=== PATIENT | female | born 2000 | race Caucasian/White ===

== ENCOUNTER 2021-06-16 00:46 | Emergency (ER) | payer MEDICAID ==
[~2021-06-16] VITALS: Ht 157.5 cm; Wt 63.3 kg
[2021-06-16 01:29] LABS: BASOPHILS % 0.5 % (0.0-2.0); HEMATOCRIT. 41.1 % (36.0-48.0); LYMPHOCYTES % 26.6 % (20.0-50.0); MEAN CORPUSCULAR HEMOGLOBIN 30.2 pg (28.0-32.0); MEAN CORPUSCULAR VOLUME 88.7 fL (81.0-99.0); MEAN PLATELET VOLUME 7.9 fl (7.4-10.4); MONOCYTES % 8.8 % (2.0-8.0); NEUTROPHILS % 61.1 % (40.0-76.0); PLATELET 257 x1000/uL (130-400); RED BLOOD CELL COUNT 4.63 mill/uL (4.2-5.4); RED CELL DISTRIBUTION WIDTH 12.7 % (11.6-14.6)
[2021-06-16 01:35] LABS: CHLORIDE 104 mEq/L (98-107)
[2021-06-16 01:41] LABS: HCG SCREEN NEGATIVE
[2021-06-16] MEDS ORDERED: BACL-141 MT (03:10)
[2021-06-16] MEDS ORDERED: IBUP-2028 MT (03:10)
[2021-06-16 03:20] VITALS: BP 120/73
== END 2021-06-16 03:20 | disposition home or self-care (01) ==
LOC: ER 01:02
DX: R07.9 Chest pain, unspecified (principal); Z98.84 Bariatric surgery status
CPT/HCPCS: 36415; 71045; 80053; 84703; 85025; 93005; 99285